=== PATIENT | female | born 1985 | race Asian ===

== ENCOUNTER → 2016-10-20 | Outpatient (CLI) | payer OTHER ==
[~2016-10-20] MED LIST: CHOL1TAB46 PO; FERR1TAB23 PO; FERROUS SULFATE PO; LEVO75TA5 PO; LEVOTHYROXINE PO; [UNRECOGNIZED DRUG - OTHER] PO
== END | disposition home or self-care (01) ==
LOC: C.LAB 10:28
PROVIDERS: ATTEND Internal Medicine Endocrinology, Diabetes & Metabolism
DX: R79.9 Abnormal finding of blood chemistry, unspecified (principal)

== ENCOUNTER → 2016-10-20 | Outpatient (CLI) | payer OTHER ==
[2016-10-20 12:28] LABS: BASO % 0.5 %; BASO ABS # 0.02 K/uL (0-0.2); COMPLETE YES; EOS % 2.4 %; IG% 0.2 %; LYMPH % 31.3 %; LYMPH ABS # 1.31 K/uL (1.2-3.4); MEAN CELL VOLUME 86.1 fL (80-100); MEAN CORPUSCULAR HEMOGLOBIN 27.7 pg (25-34); MEAN CORPUSCULAR HGB CONC 32.1 g/dl (32-36); MEAN PLATELET VOLUME 11.9 fL (7.4-10.4); MONO % 7.6 %; PLATELET COUNT 216 K/uL (130-400); RED BLOOD COUNT 4.88 M/uL (4.2-5.4); WHITE BLOOD COUNT 4.19 K/uL (4.8-10.8)
[2016-10-20 12:38] LABS: PARTIAL THROMBOPLASTIN RATIO 1.1; PROTHROMBIN TIME (PATIENT) 10.7 SECONDS (9.0-12.0)
[2016-10-20 12:47] LABS: POTASSIUM 4.2 mmol/L (3.5-5.1)
== END | disposition home or self-care (01) ==
LOC: C.LAB 10:25
DX: Z01.818 Encounter for other preprocedural examination (principal)

== ENCOUNTER → 2016-10-30 | Day surgery (SDC) | payer OTHER ==
[2016-10-26 11:28] VITALS: Ht 167.6 cm; Wt 65.9 kg
[~2016-10-30] VITALS: Ht 167.6 cm; Wt 65.9 kg
[~2016-10-30] MED LIST changes: +ATROPINE SULFATE 0.1 MG/ML 5ML SYR IV PRN; +CEFAZOLIN 2000 MG/60 ML D5W IV SCH; +DEXAMETHASONE SOD INJ 4 MG/ML VIAL ONE; +EpHEDrine SULFATE INJ 50 MG/ML AMP IV PRN; +FENTANYL CITRATE INJ 50 MCG/1 ML 2 ML VIAL IV PRN; +FENTANYL CITRATE INJ 50 MCG/1 ML 2 ML VIAL ONE; -FERROUS SULFATE PO; +HYDROCODONE/ACETAMOPHEN 5/325MG TAB PO PRN; +LACTATED RINGER'S 1000ML 1,000 ML IV SCH; -LEVOTHYROXINE PO; +LIDOCAINE HCL 2% 2 ML VIAL (20MG/ML) ONE; +LIDOCAINE/EPINEPHRINE 1% INJ 50 ML VIAL ONE; +MIDAZOLAM HCL 1 MG/ML 2ML VIAL ONE; +ONDANSETRON INJ 2 MG/ML 2 ML VIAL IV PRN; +ONDANSETRON INJ 2 MG/ML 2 ML VIAL ONE; +PROPOFOL IV EMULSION 10 MG/ML 20 ML VIAL IV ONE; +SCOPOLAMINE 1.5 MG TDSY TD ONE; -[UNRECOGNIZED DRUG - OTHER] PO
--- NOTE | 2016-10-30 12:49 | History & Physical Bridge - [place] ---
H&P Re-Evaluation Bridge Note: I have examined the patient, reviewed the History & Physical and in the interval since the performance of the History & Physical I have noted the following changes of clinical significance: No changes noted
--- NOTE | 2016-10-30 12:57 | History and Physical: Surg Cnt ---
History & Physical Date October 30, 2016. Chief Complaint LEFT PREAURICULAR SINUS/FISTULA History of Present Illness The patient is a 31 year old female with complaints of CHRONICALLY INFECTED LEFT PREAURICULAR SINUS/FISTULA Past Medical/Surgical History PMH: PAPILLARY THYROID CA PSH: S/P THYROIDECTOMY Additional History Hepatic Disease: No Endocrine Disorder: No Kidney Disease: No Hypertension: No Heart Disease: No Bleeding Tendencies: No Infectious Diseases: No Allergies Coded Allergies: Doxycycline (Verified Allergy, Unknown, FACIAL REDNESS AND ITCHING, ) Uncoded Allergies: ACNE GEL (Allergy, Unknown, FACIAL REDNESS AND ITCING, 10/26/16) Home Medications Scheduled Cholecalciferol (Vitamin D3), 1 TAB PO DAILY AT LUNCH Ferrous Sulfate (Iron), 1 TAB PO DAILY AT LUNCH Levothyroxine Sodium (Levothyroxine Sodium), 1 TAB PO QAM Physical Examination Skin: warm/dry, no rash Eyes: normal inspection, EOMI, sclerae normal ENT: + pertinent finding (L PREAURICULAR PIT WITH ABNORMAL VIOLACEOUS SKIN INFERIOR TO THE PIT) Head: normocephalic, atraumatic Neck: supple, no adenopathy, trachea midline Respiratory/Chest: lungs clear, normal breath sounds, no respiratory distress Cardiovascular: regular rate, rhythm, no edema, no murmur Neurologic/Psych: no motor/sensory deficits, alert, normal reflexes, oriented x 3 Diagnosis LEFT PREAURICULAR SINUS/FISTULA Plan of Treatment EXCISION OF LEFT PREAURICULAR SINUS/FISTULA
--- NOTE | 2016-10-30 14:16 | [facility] Operative Report ---
Operative Report Operative Date October 30, 2016. Pre-Operative Diagnosis Left Preauricular Sinus/Fistula Post-Operative Diagnosis Same Procedure(s) Performed Left Preauricular Sinus/Fistula Excisional Biopsy Surgeon Dr. Sheldon Health Care Analyst Surgeon(s) None Estimated Blood Loss 10 ML Findings 1. very inflamed Left preauricular sinus/fistula with abnormal violaceous skin inferior to left preauricular pit Specimens A. Left Preauricular Fistula I attest to the content of the Intraoperative Record and any orders documented therein. Any exceptions are noted below.
--- NOTE | 2016-10-30 14:17 | Discharge Instructions ---
Discharge Instructions Date of Service October 30, 2016. Admission Reason for Admission: Preauricular Sinus Discharge Discharge Diagnosis / Problem: SAME Discharge Goals Goal(s): Therapeutic intervention Activity Recommendations Activity Limitations: as noted below NO DRIVING WHILE ON NORCO; LIGHT ACTIVITY FOR 2 WEEKS; KEEP INCISION DRY FOR 1 WEEK . Current Hospital Diet Patient's current hospital diet: Discharge Diet Recommended Diet: Regular Diet Procedures Procedures Performed: Left Preauricular Sinus/Fistula Excisional Biopsy Pending Studies Studies pending at discharge: no Medical Emergencies . Who to Call and When: Medical Emergencies: If at any time you feel your situation is an emergency, please call 911 immediately. . Non-Emergent Contact Non-Emergency issues call your: Surgeon . . "Provider Documentation" section prepared by Pete Sheldon. . VTE Core Measure Inpt VTE Proph given/why not?: SCD's
[2016-10-30 14:58] VITALS: TEMP 37
[2016-10-30 15:25] VITALS: BP 119/85; PULSE 58; O2SAT 99
--- NOTE | 2016-10-30 15:28 | Anesthesia Progress Nt - [facility] ---
Anesthesia Post Op Note Date & Time October 30, 2016 at 15:29 Vital Signs Pain Intensity: 3 Vital Signs Past 12 Hours Date Time Temp Pulse Resp B/P Pulse Ox O2 Delivery O2 Flow Rate FiO2 10/30/16 15:25 58 16 119/85 99 Room Air 10/30/16 14:58 37.0 58 16 114/75 98 Room Air 10/30/16 14:51 118/79 10/30/16 14:48 55 17 98 10/30/16 14:48 57 17 10/30/16 14:47 36.8 61 16 118/79 97 Room Air 10/30/16 14:46 117/75 10/30/16 14:43 80 17 10/30/16 14:43 82 17 97 10/30/16 14:41 116/76 10/30/16 14:38 63 17 10/30/16 14:38 64 17 100 10/30/16 14:36 114/75 10/30/16 14:33 61 6 10/30/16 14:33 61 6 100 10/30/16 14:31 117/78 10/30/16 14:28 61 13 100 10/30/16 14:28 60 13 10/30/16 14:26 110/74 10/30/16 14:23 36.6 63 16 105/64 100 Diffusion Mask 6 10/30/16 14:23 55 8 100 10/30/16 14:23 54 8 10/30/16 14:21 113/76 10/30/16 14:19 105/74 10/30/16 10:42 36.7 73 16 116/81 98 Room Air Notes Mental Status: alert / awake / arousable, participated in evaluation Pt Amnestic to Procedure: Yes Nausea / Vomiting: adequately controlled Pain: adequately controlled Airway Patency, RR, SpO2: stable & adequate BP & HR: stable & adequate Hydration State: stable & adequate Anesthetic Complications: no major complications apparent
--- NOTE | 2016-10-30 16:31 | OPERATIVE REPORT ---
DATE OF OPERATION: 10/30/2016 PREOPERATIVE DIAGNOSIS: Left preauricular sinus/fistula. POSTOPERATIVE DIAGNOSIS: Left preauricular sinus/fistula. PROCEDURE: Excisional biopsy of left preauricular sinus/fistula. SURGEON: Dr. Sheldon. ANESTHESIA: General laryngeal mask airway. ESTIMATED BLOOD LOSS: 10 mL. FINDINGS: 1. Left preauricular pit with underlying cyst and abnormal fistulous connection to skin inferior to the pit with associated granulation tissue. SPECIMENS: Left preauricular sinus/fistula for permanent pathological assessment. DRAINS: None. COMPLICATIONS: None. INDICATIONS: The patient is a 31-year-old female with a chronically infected left preauricular sinus/fistula with abnormal fistulous communication to the skin inferior to a preauricular pit with violaceous skin changes. DESCRIPTION OF PROCEDURE: After informed consent had been obtained from the patient, the patient was wheeled to the operating room and placed on the operating table in the supine position. Monitors were placed. After induction of general anesthesia by mask induction, the patient's head was gently turned to the right and a marking pen was used to outline the planned elliptical incision that included the preauricular pit as well as the violaceous abnormal skin inferior to the pit as well as extending to the postauricular crease. A total of 2 mL of 1% lidocaine with 1:100,000 epinephrine was used to inject the skin and subcutaneous tissues overlying the planned incision site. The skin of the left ear and neck was then prepped and draped in the usual sterile fashion. A #15 scalpel was used to make the elliptical incision through the skin and subcutaneous tissue. Care was taken to make sure all the abnormal skin tissue inferior to the preauricular pit was incorporated into the excision. Using blunt and sharp dissection, the preauricular pit and sinus were identified. The dissection was carried down to the level of the helical cartilage and a small piece of cartilage was shaved off of the helical root in order to ensure adequate removal of the left preauricular sinus/fistula. The specimen was sent off for permanent pathological assessment. The wound was copiously irrigated and suctioned. Bipolar electrocautery was used to achieve adequate hemostasis. There was a severe amount of inflammation and inflamed tissue that made the dissection quite difficult. Care was taken to achieve adequate hemostasis. The deep soft tissues were then reapproximated using several deep dermal 4-0 Monocryl sutures. The skin was then closed with several simple interrupted subcuticular 5-0 Monocryl sutures. The incision was cleansed and dried. Dermabond was applied to the incision. This marked the end of the case. The patient tolerated the procedure well. There were no apparent complications. The patient had her laryngeal mask airway removed and was transferred to the recovery room in stable condition. I attest to the content of the Intraoperative Record and any orders documented therein. Any exceptio ns are noted below.
== END | disposition home or self-care (01) ==
LOC: X.SURG 10:13
DX: Q18.1 Preauricular sinus and cyst (principal); J32.9 Chronic sinusitis, unspecified; Z85.850 Personal history of malignant neoplasm of thyroid; E89.0 Postprocedural hypothyroidism

== ENCOUNTER → 2017-05-10 | Outpatient (CLI) | payer OTHER ==
[~2017-05-10] MED LIST changes: -ATROPINE SULFATE 0.1 MG/ML 5ML SYR IV PRN; -CEFAZOLIN 2000 MG/60 ML D5W IV SCH; -DEXAMETHASONE SOD INJ 4 MG/ML VIAL ONE; -EpHEDrine SULFATE INJ 50 MG/ML AMP IV PRN; -FENTANYL CITRATE INJ 50 MCG/1 ML 2 ML VIAL IV PRN; -FENTANYL CITRATE INJ 50 MCG/1 ML 2 ML VIAL ONE; -HYDROCODONE/ACETAMOPHEN 5/325MG TAB PO PRN; -LACTATED RINGER'S 1000ML 1,000 ML IV SCH; -LIDOCAINE HCL 2% 2 ML VIAL (20MG/ML) ONE; -LIDOCAINE/EPINEPHRINE 1% INJ 50 ML VIAL ONE; -MIDAZOLAM HCL 1 MG/ML 2ML VIAL ONE; -ONDANSETRON INJ 2 MG/ML 2 ML VIAL IV PRN; -ONDANSETRON INJ 2 MG/ML 2 ML VIAL ONE; -PROPOFOL IV EMULSION 10 MG/ML 20 ML VIAL IV ONE; -SCOPOLAMINE 1.5 MG TDSY TD ONE
--- NOTE | 2017-05-10 14:48 | DIAGNOSTIC IMAGING REPORT ---
SOFT TISS HEAD/NECK-THYROID CLINICAL HISTORY: 31 years-old Female with THYROID CARCINOMA. Follow-up study in a patient with thyroid carcinoma. History of prior right thyroidectomy COMPARISON: Thyroid ultrasound 05/29/2016 TECHNIQUE: Multiple real time sonographic images of the thyroid were obtained accessing sheppard scale appearance and color doppler flow. FINDINGS: MEASUREMENTS: Right lobe: Surgically absent Left lobe: 3.7 x 1.4 x 1.4 cm cm Isthmus: Surgically absent PARENCHYMA: The thyroid parenchymal echotexture is homogeneous. NODULES: No discrete nodules are appreciated. No adenopathy identified. IMPRESSION: Prior right thyroidectomy without evidence of focal thyroid nodule or new tissue heterogeneity. The above report was generated using voice recognition software. It may contain grammatical, syntax or spelling errors. Electronically signed by: Bipin Pryor M.D. 05/10/2017 2:47 PM Dictated Date/Time: 05/10/2017 2:45 PM
== END | disposition home or self-care (01) ==
LOC: C.ULTR 13:02
PROVIDERS: ATTEND Family Medicine
DX: C73 Malignant neoplasm of thyroid gland (principal)